=== PATIENT | male | born 1980 | race Caucasian/White ===

== ENCOUNTER 2022-08-23 10:14 | Emergency (ER) | payer MEDICAID ==
[~2022-08-23] VITALS: Ht 167.6 cm; Wt 80.0 kg
[2022-08-23 10:19] VITALS: BP 144/65
[2022-08-23] MEDS ORDERED: CYCL5TAB MT (13:49)
== END 2022-08-23 13:59 | disposition home or self-care (01) ==
LOC: ER 10:44
DX: K60.2 Anal fissure, unspecified (principal)
CPT/HCPCS: 99283

== ENCOUNTER 2023-01-30 19:36 | Emergency (ER) | payer MEDICAID, OTHER ==
[~2023-01-30] VITALS: Ht 175.3 cm; Wt 75.0 kg
[~2023-01-30 19:36] MED LIST: CYCL5TAB MT
[2023-01-30 19:50] VITALS: BP 118/78; PULSE 89; RESP 16; TEMP 98.3; O2SAT 98
[2023-01-30 20:27] LABS: BASOPHILS % 0.4 % (0.0-2.0); EOSINOPHILS % 3.4 % (0.0-5.0); HEMATOCRIT. 40.1 % (42.0-52.0); HEMOGLOBIN. 13.6 g/dL (14.0-18.0); LYMPHOCYTES % 35.5 % (20.0-50.0); MEAN CORPUSCULAR HEMOGLOBIN 30.2 pg (28.0-32.0); MEAN CORPUSCULAR VOLUME 89.3 fL (80.0-94.0); MEAN PLATELET VOLUME 9.4 fl (7.4-10.4); MONOCYTES % 9.1 % (2.0-8.0); NEUTROPHILS % 51.6 % (40.0-76.0); PLATELET 225 x1000/uL (130-400); RED CELL DISTRIBUTION WIDTH 13.1 % (11.6-14.6)
[2023-01-30 20:34] LABS: CHLORIDE 103 mEq/L (98-107)
== END 2023-01-30 23:16 | disposition left against medical advice (07) ==
LOC: ER 19:36
DX: Z53.21 Procedure and treatment not carried out due to patient leaving prior to being seen by health care provider (principal); I49.9 Cardiac arrhythmia, unspecified
CPT/HCPCS: 36415; 71045; 80053; 85025; 86850; 86900; 93005; 99281